=== PATIENT | male | born 1985 | race Caucasian/White ===

== ENCOUNTER 2019-11-06 07:02 | Day surgery (SDC) | payer BC, OTHER ==
[2019-11-01 13:58] VITALS: BMI 27.3
[~2019-11-06 07:02] MED LIST: LACTATED RINGERS 1,000 ML IV SCH
[2019-11-06 07:19] VITALS: TEMP 97.6
[2019-11-06] MEDS ORDERED: LIDOCAINE 1% INJ 10MG/ML (20 ML MDV) ONE (07:33)
[2019-11-06] MEDS ORDERED: MIDAZOLAM 2 MG/2 ML VIAL ONE (07:33)
[2019-11-06] MEDS ORDERED: PROPOFOL 10 MG/ML 20 ML VIAL IV ONE (07:33)
--- NOTE | 2019-11-06 08:18 | P.PCN ---
Date of Procedure: 11/06/19 Procedure(s) Performed: BRIEF HISTORY: Patient is a 34-year-old pleasant white male scheduled for an elective colonoscopy as a part of screening for colorectal neoplasia. His a family history of colon cancer in his mother was diagnosed with colon cancer at age 50. PROCEDURE PERFORMED: Colonoscopy. PREOPERATIVE DIAGNOSIS: Screening for colon cancer/family history of colon cancer. IV sedation per Anesthesia. PROCEDURE: After informed consent was obtained, the patient, was brought into the endoscopy unit. IV sedation was administered by Anesthesia under continuous monitoring. Digital rectal examination was normal. Initially the Olympus CF-160 flexible video colonoscope was then inserted in the rectum, gradually advanced into the cecum without any difficulty. Careful examination was performed as the scope was gradually being withdrawn. Ileocecal valve and the appendiceal orifice were visualized and appeared normal. Prep was excellent. Mucosa of the cecum, ascending colon, transverse colon, descending colon, sigmoid colon, and rectum appeared normal. Retroflexion was performed in the rectum and no lesions were seen. The patient tolerated the procedure well. IMPRESSION: Normal-appearing colon from rectum to cecum . RECOMMENDATIONS: Findings of this examination were discussed with the patient as well as his family. He was advised to have a repeat screening colonoscopy every 5 years because of family history of colon cancer.
[2019-11-06 08:37] VITALS: RESP 16
[2019-11-06 09:00] VITALS: BP 123/84; PULSE 70
== END 2019-11-06 09:13 | disposition home or self-care (01) ==
LOC: ORWHC2ENDO 07:02
PROVIDERS: ATTEND Internal Medicine Gastroenterology
DX: Z12.11 Encounter for screening for malignant neoplasm of colon (principal); Z88.0 Allergy status to penicillin; Z80.0 Family history of malignant neoplasm of digestive organs
CPT/HCPCS: J2250; J2001; J2704; G0105

== ENCOUNTER → 2020-05-14 | Outpatient (CLI) | payer BC ==
--- NOTE | 2020-05-14 20:36 | MR ---
EXAMINATION TYPE: MR knee RT wo con DATE OF EXAM: 05/14/2020 COMPARISON: None. HISTORY: Inner left knee pain since 05/07/20. Effusion. Probable ACL tear. Hx of left knee ACL repair. TECHNIQUE: Multiplanar, multisequence imaging of the right knee is performed without IV contrast. FINDINGS: MEDIAL MENISCUS: Anterior and posterior horns are intact without tear. LATERAL MENISCUS: Anterior and posterior horns are intact without tear. CRUCIATE LIGAMENTS: The posterior cruciate ligament is intact and unremarkable. Anterior cruciate lig ament is completely torn over 1.6 cm gap sagittal image 18 midsegment COLLATERAL LIGAMENTS: The medial collateral ligament and lateral collateral ligament complex are inta ct. Mild to moderate fluid signal surrounds medial collateral ligament. EXTENSOR MECHANISM: Visualized quadriceps and patellar tendons are intact. EFFUSION: Moderate size suprapatellar joint effusion. POPLITEAL CYST: Moderate size popliteal/Domínguez cyst measuring 5.3 cm sagittal image 10 with some leak or adjacent ill-defined fluid. TRICOMPARTMENT SPACES: The tricompartment joint spaces are maintained. No significant spurring. CARTILAGE: Tricompartment articular cartilage is preserved. BONE MARROW SIGNAL: Heterogeneous increased T2 signal osseous contusion involving the distal lateral femoral condyle greatest anteriorly coronal image 17. Mild to minimal involvement involving posterior aspect of the lateral tibial plateau axial image 9. OTHER: No additional significant abnormality is appreciated. IMPRESSION: 1. Complete ACL tear. Associated osseous contusion injury involving the articular surface lateral dis wilma femoral condyle and to lesser degree the posterior aspect of the lateral tibial plateau. 2. Moderate-sized suprapatellar joint effusion. 3. Mild MCL sprain injury. 4. Moderate-sized leaking popliteal cyst.
== END ==
LOC: RADMRIMAIN 15:34
PROVIDERS: ATTEND Orthopaedic Surgery Sports Medicine
DX: M25.462 Effusion, left knee (principal); M71.22 Synovial cyst of popliteal space [Baker], left knee; S83.512A Sprain of anterior cruciate ligament of left knee, initial encounter; S83.412A Sprain of medial collateral ligament of left knee, initial encounter

== ENCOUNTER → 2024-02-14 | Outpatient (CLI) | payer BC ==
[2024-02-14 14:34] VITALS: BP 140/81; PULSE 74; RESP 16
--- NOTE | 2024-02-14 14:46 | P.PAINPG ---
Objective - Vital Signs Vital signs: Intake & Output 02/13/24 02/14/24 02/14/24 18:59 06:59 18:59 Weight 81.647 kg PQRS Measure Charge Sheet Comment: HISTORY OF PRESENT ILLNESS: A 38 yr old male as a referral from Dr Cassidy presents today w severe and chronic LBP > 3 mo secondary to Levoscoliosis, L4-L5 mod central stenosis, L5-S1 L paracentral disc bulge for evaluation. Pt states pain level is provoked at 6 /10 in intensity, constant, localized in the lumbar spine, predominantly axial, sore in character w occasional shooting pain towards the L > R of midline. Pain is provoked by lifting. Pain is alleviated by a physician guided home exercises 5- 6 times weekly since Dec 2023, medications (Whitfield 5/325mg), Lidoderm topical, heat, ice, repositioning and rest . Oswestry axial pain score at 23. PMH: OA PSH: Colonoscopy (2019), L ACL Repair SH: Never smoker, Occ ETOH use, No illicit drug use FH: CAD All: See list Meds: See list REVIEW OF ORGAN SYSTEMS: CONSTITUTIONAL: No fevers or chills. No recent weight loss. NEUROLOGICAL: + numbness and tingling along the distal extremities. No seizure disorders or headaches. MUSCULOSKELETAL: + pain PSYCHIATRIC: Denies current depression or suicidal thoughts. Physical Examinations : Constitutional : Cooperative , not in acute distress . Neurologic : Cranial nerve II to XII intact. No focal neurological deficits. Psychiatric : alert & oriented x 3. Matching mood & appropriate affect. Judgment & insight intact. Musculoskeletal : Cervical Spine Motor strength in the deltoid and biceps: Normal right side. Normal Left side Motor strength biceps and the wrist extensors: Normal right side . Normal left side Motor strength in the triceps muscle: Normal right side. Normal left side Deep tendon reflexes: Normal at the biceps. Normal at Brachioradialis. Normal at triceps Vertebral body tenderness to deep palpation over Cervical facet loading test: positive bilaterally Spurling test: positive bilaterally Neck distraction test: positive bilaterally Yael sign: positive bilaterally Lumbar spine Motor strength lower extremities ,thigh and legs 5/5 Right side , 5/5 Left side Deep tendon reflexes : Normal Knee Jerk. Normal Ankle Jerk Vertebral body tenderness over L5 Dong Test positive L> R L4-L5 Lumbar facet Loading Test: positive Right / positive Left Range of motion of the lumbar spine Flexion 30 degrees, extension 10 degrees Straight Leg Raise test: Left/ Right positive at degrees Loretta test: positive right / positive left. Severe tenderness over the Sacroiliac joint on the Right / Left sides Gaenslen test: positive bilaterally Seated flexion test: positive bilaterally. Sacral spine : Severe tenderness over the Sacroiliac joint: right side / left side Range of motion: Flexion of the lumbar spine <60 degrees Range of motion: Extension of the lumbar spine <20 degrees Gaenslen's Test positive Loretta test: positive right side / left side Thigh Thrust Test Sacral Thrust Test Imaging: MRI non contrast lumbar spine from 01/12/24 reviewed Assessment/ Plan : Levoscoliosis, L4-L5 mod central stenosis, L5-S1 L paracentral disc bulge Recommendation of ILIA L4-L5 #1. Risks, benefits of procedure discussed and patient verbalized understanding. Protocol for discontinuation/ continuation of medications jamilah procedure discussed. All questions answered. I have spent greater than 30 minutes on patient care today. Dr García was available by phone for the evaluation of this patient. The time was used to review the medical records including relevant urine studies and Prescription history (MAPs), review of the available imaging, evaluation and examination of the patient, coordination of care with the medical staff and if applicable referring physicians, as well as creation of the medical record PQRS Narrative: Smoking Status Never smoker Home Medications: Ambulatory Orders No Known Home Medications 11/01/19 Controlled Substance Measures - Controlled Substance Measures Is patient prescribed a controlled substance at discharge?: No
== END ==
LOC: PNWHC3 14:08
PROVIDERS: ATTEND Specialist
DX: M41.9 Scoliosis, unspecified (principal); M48.061 Spinal stenosis, lumbar region without neurogenic claudication; M51.379 Other intervertebral disc degeneration, lumbosacral region without mention of lumbar back pain or lower extremity pain; Z88.0 Allergy status to penicillin
CPT/HCPCS: 99211

== ENCOUNTER 2024-02-22 12:49 | Day surgery (SDC) | payer BC ==
[2024-02-22 14:09] VITALS: TEMP 98.1
[2024-02-22] MEDS ORDERED: methylPREDNISolone ACETATE 80 MG/ML 1 ML VIAL ONE (14:30)
[2024-02-22] MEDS ORDERED: IOPAMIDOL M200 10 ML VIAL ONE (14:30)
--- NOTE | 2024-02-22 14:58 | P.PCN ---
Date of Procedure: 02/22/24 Procedure(s) Performed: PREOPERATIVE DIAGNOSIS: 1- Lumbar Degenerative Disc Diseases 2-Lumbar spondylosis with Facet arthropathy without myelopathy. 3-lumbar spinal stenosis 4-lumbar radiculopathy POSTOPERATIVE DIAGNOSIS: 1-lumbar degenerative disc disease. 2-lumbar spondylosis with facet arthropathy without myelopathy. 3-lumbar spinal stenosis. 4-lumbar radiculopathy PROCEDURE 1. Lumbar epidural steroid injection under fluoroscopic guidance at the L4-5 level. (Fluoroscopy imaging was available in radiology department) 2. Lumbar epidurogram. ANESTHESIA: Lidocaine 1% 3 and then only. EBL: Minimal PROCEDURE INDICATION: The patient with low back pain and radiculitis symptoms unresponsive to conservative treatment. Fluoroscopy was used to optimize visualization of the needle placement and to maximize safety. PROCEDURE DESCRIPTION / TECHNIQUE: The patient was seen and identified in the preoperative area. Risks, benefits, complications including but not limited to infections ,bleeding ,allergic reaction to the medications ,nerve damage and not complete pain releife , and alternatives were discussed with the patient. The patient agreed to proceed with the procedure and signed the consent, and vital signs were stable. Patient was taken to the OR and time out was completed. The patient was placed in the prone position on procedure table and a pillow was placed under the abdomen to reduce lumbar lordosis. The lumbosacral area was prepped and draped in the usual sterile fashion.ere closely monitored during the procedure. Vital signs was monitered during the entire procedure. Using anterior-posterior fluoroscopy, the L4-5 interlaminar space was identified and the skin over this site was marked and then infiltrated with 1% lidocaine subcutaneously. Subsequently, a 20-gauge Tuohy epidural needle was inserted and advanced toward the epidural space using the ``Loss of resistance technique and guided by AP and lateral fluoroscopy. The correct needle position in the epidural space was verified with the injection of 2 mL of the water soluble contrast dye Isovue 200 contrast and observing an excellent epidurogram with the epidural spread of the dye, after negative aspiration for blood and CSF and in the absence of paresthesias. Again after negative aspiration, a 6 ml mixture containing 80 mg of Depo-medrol ( Preservetive Free ), and 2 ml of preservative free Normal Saline, and 2 ml of preservative free lidocaine 1% solution was injected and a washout of epidurogram was seen. Needle was withdrawn intact, skin was cleansed, and bandages were applied. COMPLICATIONS: None DISPOSITION / PLANS: The patient was placed in a supine position and transferred to the recovery area in a stable condition for observation. There was no evidence of lower extremity motor or sensory deficit after the procedure. Patient was discharged from the recovery room after meeting discharge criteria. Home discharge instructions were given to the patient by the staff. The patient was reexamined prior to discharge. The patient will schedule a follow up in the clinic in 2-4 weeks.
[2024-02-22 15:02] VITALS: RESP 16
[2024-02-22 15:19] VITALS: BP 123/77; PULSE 83
--- NOTE | 2024-02-22 16:26 | FL ---
Fluoroscopy History: Lumbar Epid Inj LESI WITH PAIN SERVICES. LOW BACK PAIN FOR SOME TIME. FL TIME 2.6 DAP [id number] [facility], , 02/22/2024 4:24 PM
== END 2024-02-22 15:26 | disposition home or self-care (01) ==
LOC: ORPAIN 12:49
PROVIDERS: ATTEND Specialist
DX: M47.26 Other spondylosis with radiculopathy, lumbar region (principal); M48.061 Spinal stenosis, lumbar region without neurogenic claudication; M51.16 Intervertebral disc disorders with radiculopathy, lumbar region; Z88.1 Allergy status to other antibiotic agents
CPT/HCPCS: 62323; Q9966; J1010